=== PATIENT | male | born 1980 | race Caucasian/White ===

== ENCOUNTER 2024-03-29 09:22 | Emergency (ER) | payer OTHER ==
--- OUTSIDE RECORDS SUMMARY | 2024-03-29 09:26 | XMS REPORT | Continuity of Care Document ---
Author Name Unknown Address [address] 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 Role Phone Maxim Stanford Attending Clinician Ingrid Morris Attending Clinician Unavailab Joe Moctezuma Attending Clinician Katarina Davis V Admitting Clinician Unavailable Alexandra Admitting Clinician Unavailab Katarina Hooper Admitting Clinician Unavailable Payers Payer Name Policy Type Policy Number Effective Date Expirati on Date Source [employer] - MILAGROS (PPO) [id number] 2022 00:00:00 Problems Condition Name Condition Details Condition Category Status Onset Date Resolution Date Last Treatment Date Treating Clinician Comments Source Snoring Snoring Problem Active 10-28 00:00: 00 [facility] Adult-onse t obesity Adult-onse t Obesity Problem Active 03-14 00:00: 00 [facility] Cough Cough Problem Active 07-07 00:00: 00 [facility] Wax in ear canal Wax in Ear Canal Problem Active 07-07 00:00: 00 [facility] Otitis Otitis Problem Active 07-07 00:00: 00 [facility] Acute sinusitis Acute Sinusitis Problem Active 07-07 00:00: 00 [facility] Kidney stone Kidney Stone Problem Active 02-27 00:00: 00 [facility] Allergies, Adverse Reactions, Alerts Allergy Name Allergy Type Status Severity Reaction(s) Onset Date Inactive Date Treating Clinician Comments Source adhesive tape DA Active U RASH-UNKNOWN 07-06 00:00: 00 [facility] No Known Allergie s DA Active U 04-21 00:00: 00 [facility] Social History Smoking Status Start Date Stop Date Source Never Smoker [facility] Medications Ordered Medication Name Filled Medication Name Start Date Stop Date Current Medication? Ordering Clinician Indication Dosage Frequency Signature (SIG) Comments Components Source amlodipine 5 mg tablet TAKE 1 TABLET BY MOUTH ONCE DAILY FOR HIGH BLOOD PRESSURE amlodipine 5 mg tablet TAKE 1 TABLET BY MOUTH ONCE DAILY FOR HIGH BLOOD PRESSURE No amlodipine 5 mg tablet TAKE 1 TABLET BY MOUTH ONCE DAILY FOR HIGH BLOOD PRESSURE [facility] aspirin 81 mg tablet,jerome yed release TAKE 1 TABLET BY MOUTH ONCE DAILY FOR MINIMIZE CARDIAC OR STROKE RISK aspirin 81 mg tablet,jerome yed release TAKE 1 TABLET BY MOUTH ONCE DAILY FOR MINIMIZE CARDIAC OR STROKE RISK No aspirin 81 mg tablet,del ayed release TAKE 1 TABLET BY MOUTH ONCE DAILY FOR MINIMIZE CARDIAC OR STROKE RISK [facility] escitalopra m 5 mg tablet Take 1 tablet every day by oral route. escitalopra m 5 mg tablet Take 1 tablet every day by oral route. No 1 Q1D escitalopr am 5 mg tablet Take 1 tablet every day by oral route. [facility] e Immunizations Ordered Immunization Name Filled Immunization Name Date Status Comments Source Pfizer COVID-19 Vaccine Pfizer COVID-19 Vaccine 2020-10-10 00:00:00 Completed Pfizer COVID-19 Vaccine Pfizer COVID-19 Vaccine 2020-09-19 00:00:00 Completed Vital Signs Vital Name Observation Time Observation Value Comments S ource Height 2022-10-28 00:00:00 71 [in_i] [facility] Body Weight 2022-10-28 00:00:00 241 [lb_av] [facility] BP Systolic 2022-10-28 00:00:00 112 mm[Hg] [facility] BMI (Body Mass Index) 2022-10-28 00:00:00 33.6 kg/m2 [facility] BP Diastolic 2022-10-28 00:00:00 80 mm[Hg] [facility] Plan of Care Planned Activity Planned Date Details Comments Source Diagnostic Test Pending 2022-10-28 00:00:00 T4, free, serum [code = T4, free, serum] [facility] Diagnostic Test Pending 2022-10-28 00:00:00 CBC w/ auto diff [code = CBC w/ auto diff] [facility] Instructions [facility] Encounters Start Date/Time End Date/Time Encounter Type Admission Type Attending Clinicians Care Facility Care Department Encounter ID Source 2023-07-07 00:27:00 2023-07-07 02:44:00 Emergency EM Maxim Stanford [facility] [id number] 59 [facility] 2023-02-07 00:00:00 2023-02-07 00:00:00 Outpatient Nguyen_Jessah _HOU_MD VFP VFP [id number] [facility] 2022-10-28 00:00:00 2022-10-28 00:00:00 Outpatient Nguyen_Bich _HOU_MD VFP VFP [id number] [facility] 2022-10-28 00:00:00 2022-10-28 00:00:00 Outpatient Nguyen_Bich _HOU_MD VFP VFP [id number] [facility] 2022-10-28 00:00:00 2022-10-28 00:00:00 Sarah Lundberg MD: [address] [place] [address] , [address], [place] [address] , Ph. VFP [place] - [facility] - [place] - VM_HOU_Beesarah Aurea [id number] [facility] 2022-10-23 07:40:00 2022-10-23 09:51:00 Emergency EM Joe Persaud [facility] [id number] 52 [facility] 2020-10-10 00:00:00 2020-10-10 00:00:00 Outpatient GCCOVIDV GCCOVIDV [id number] [facility] 2020-09-19 00:00:00 2020-09-19 00:00:00 Outpatient GCCOVIDV GCCOVIDV [id number] [facility] Results Test Description Test Time Test Comments Results Result Co mments Source [id number] 02:13:00* Test Item Value Reference Range Interpretation Comme nts MAGNESIUM (test code = MAG) 2.0 mg/dl 1.8-2.4 N TROP-I HIGH [id number] 02:13:00* Test Item Value Reference Range Interpretation Comme nts TROP-I HIGH SENSITIVITY (test code = TROPIHS) 5 ng/L 0-76 N CAUTION: U nits of the current TROPI-HS test methodology(ng/L) differ from the prior test methodology (ng/mL) by afactor of 1000. 99th Percentile: Females: 0 - 51 ng/L Males: 0 - 76 ng/LThese results were obtained using enavu TnIHreagent. Results from different methodologies should not becompared to one another as quantitative results may vary bymethod. CBC W/AUTO [id number] 01:58:00* Test Item Value Reference Range Interpretation Comme nts WHITE BLOOD CELL (test code = WBC) 7.2 K/mm3 4.5-11.0 N RED BLOOD CELL (test code = RBC) 4.93 M/mm3 4.40-5.90 N HEMOGLOBIN (test code = HGB) 14.6 gm/dL 13.0-17.0 N HEMATOCRIT (test code = HCT) 44.5 % 36.0-48.0 N MEAN CELL VOLUME (test code = MCV) 90.3 UM3 80.0-94.0 N MEAN CELL HGB (test code = MCH) 29.6 UUG 25.5-32.5 N MEAN CELL HGB CONCETRATION (test code = MCHC) 32.8 gm/dL 29.0-35.5 N RED CELL DISTRIBUTION WIDTH (test code = RDW) 12.5 % 11.5-15.0 N RED CELL DISTRIBUTION WIDTH SD (test code = RDW-SD) 41.4 fL 34.8-50.2 N PLATELET COUNT (test code = PLT) 188 K/mm3 150-400 N MEAN PLATELET VOLUME (test c ode = MPV) 11.4 fl 7.4-10.4 H NEUTROPHIL % (test code = NT%) 55.7 % 49.0-76.0 N IMMATURE GRANULOCYTE % (test code = IG%) 0.3 % 0.0-0.4 N LYMPHOCYTE % (test code = LY%) 31.5 % 23.0-38.0 N MONOCYTE % (test code = MO%) 10.1 % 1.0-10.0 H EOSINOPHIL % (test code = EO%) 1.8 % 1.0-5.0 N BASOPHIL % (test code = BA%) 0.6 % 0.0-1.0 N NUCLEATED RBC % (test code = NRBC%) 0.0 % 0.0-0.1 N NEUTROPHIL # (test code = NT#) 4.0 K/mm3 2.4-6.3 N IMMATURE GRANULOCYTE # (test code = IG#) 0.02 x10 3/uL 0.00-0.07 N LYMPHOCYTE # (test code = LY#) 2.3 K/mm3 1.2-4.0 N MONOCYTE # (test code = MO#) 0.7 K/mm3 0.0-0.6 H EOSINOPHIL # (test code = EO#) 0.1 K/MM3 0.0-0.7 N BASOPHIL # (test code = BA#) 0.0 K/mm3 0.0-0.2 N NUCLEATED RBC # (test code = NRBC#) 0.00 X10 3uL 0.00-0.01 N - XR CHEST 1 [id number] 01:43:00 [facility] 1980 Sex: M FAX: Maxim Stanford MD [place]: St: REG FAX: Dary Wayne [phone] Name: ADAM TALLEY [facility] : 1980 Age/S: 42/M [address] [facility] Unit #: [id number] Loc: [place], [place]: [place] [address] Acct: [id number] Dis Date: Status: REG ER PHONE #: [phone] Exam Date: 07/07/2023 0125 FAX #: [phone] Reason: Chest Pain EXAMS: CPT CODE: [id number] XR CHEST 1 V 02320 EXAM: - XR CHEST 1 V HISTORY: Chest pain. COMPARISON: October 23, 2022. FINDINGS: Single AP view of the chest is provided. Heart size and vascularity are within normal limits. There isno evidence of a focal consolidation. There is no pleural effusion or pneumothorax. There is no definite acute osseous abnormality. IMPRESSION: No radiographic evidence of acute cardiopulmonary process. at 0143 Reported and signed by: Miller Coppola M.D. CC: Maxim Stanford MD; Dary Wayne NP Technologist: HEDY CORLEY Trntxrd Date/Time/By: 07/07/2023 (0143) : By: [email or web address] PAGE 1 Signed Report FAX: Maxim Stanford MD [place]: St: REG FAX: Dary Wayne [phone] Name: ADAM TALLEY [facility] : 1980 Age/S: 42/M [address] [employer] Unit #: [id number] Loc: [place], [place]: [place] [id number] Acct: [id number] Dis Date: Status: REG ER PHONE #: [phone] Exam Date:07/07/2023 0125 FAX #: [phone] Reason: Chest Pain EXAMS: CPT CODE: [id number] XR CHEST 1 V 41138 (Continued) Orig Print D/T: S: 07/07/2023 (0146) PAGE 2 Signed Report [id number] 09:23:00* Test Item Value Reference Range Interpretation Comme nts MAGNESIUM (test code = MAG) 1.9 mg/dl 1.8-2.4 N THYROID STIMULATING [id number] 09:23:00* Test Item Value Reference Range Interpretation Comme nts THYROID STIMULATING HORMONE (test code = TSH) 6.83 IU/ML 0.47-5.01 H Result is in International Units/milliliter [id number] 09:23:00* Test Item Value Reference Range Interpretation Comme nts CKMB (test code = CKMBT) <0.5 NG/ML 0.5-5.0 L DISREGARD CKMB I NDEX CALCULATION WHENEVER THE CKMBT ISREPORTED <0.5 TROP-I HIGH [id number] 09:23:00* Test Item Value Reference Range Interpretation Comme nts TROP-I HIGH SENSITIVITY (test code = TROPIHS) 6 ng/L 0-76 N CAUTION: U nits of the current TROPI-HS test methodology(ng/L) differ from the prior test methodology (ng/mL) by afactor of 1000. 99th Percentile: Females: 0 - 51 ng/L Males: 0 - 76 ng/LThese results were obtained using Hyperformixt. Results from different methodologies should not becompared to one another as quantitative results may vary bymethod. BASIC METABOLIC [id number] 09:23:00* Test Item Value Reference Range Interpretation Comme nts SODIUM (test code = NA) 137 mmol/l 134.0-147.0 N POTASSIUM (test code = K) 3.7 mmol/L 3.6-5.2 N CHLORIDE (test code = CL) 100 mmol/l 98.0-107.0 N CARBON DIOXIDE (test code = CO2) 32.3 mmol/l 21.0-33.0 N ANION GAP (test code = GAP) 8.4 0-20 N GLUCOSE (test code = GLU) 104 mg/dl 70.0-110.0 N BLOOD UREA NITROGEN (test code = BUN) 10 mg/dl 7.0-18.0 N GLOMERULAR FILTRATION RATE (test code = GFR) 112 mL/min The Glomerular Filtration Rate is a calculated parameterbased on serum Creatinine, patient age and sex. GFR valuesless than 60 mL/min/1.73 square meters are indicative ofChronic Kidney Disease. Values less than 15 mL/min/1.73square meters indicate Kidney failure. The calculation forGFR is based on the CKD-EPI (2020) calculation. This formulais race indifferent and is the recommended formula for GFRby the National Kidney Foundation for Adults.The GFR will not calculate if the sex is unknown or if thepatient's age is <18 years. CREATININE (test code = CREAT) 0.82 mg/dL 0.60-1.30 N CALCIUM (test code = CA) 9.4 mg/dl 8.0-10.5 N ESTIMATED CREAT CLEARANCE (test code = ECRCL) 124 mL/min >30 LIPID PROFILE (CORONARY RISK)2022-10-23 09:23:00* Test Item Value Reference Range Interpretation Comme nts TRIGLYCERIDES (test code = TRIG) 77 mg/dl 40.0-150.0 N CHOLESTEROL (test code = CHOL) 151 mg/dl 0.0-200.0 N CHOLESTEROL/HDL RATIO (test code = CHOLHDL) 3.7 RATIO HDL CHOLESTEROL (test code = HDL) 41 mg/dl 30.0-60.0 N LIPOPROTEIN LDL (test code = LDL) 92 mg/dl 70-130 N HEPATIC FUNCTION PANEL [id number] 09:23:00* Test Item Value Reference Range Interpretation Comme nts TOTAL PROTEIN (test code = PROT) 7.1 gm/dL 6.4-8.2 N ALBUMIN (test code = ALB) 3.8 gm/dl 3.2-4.7 N BILIRUBIN TOTAL (test code = BILT) 0.3 mg/dl 0.0-1.0 N BILIRUBIN DIRECT (test code = BILD) 0.1 mg/dl 0.0-0.3 N SGOT/AST (test code = AST) 21 Units/L 15-37 N SGPT/ALT (test code = ALT) 33 Units/L 12.0-78.0 N ALKALINE PHOSPHATASE TOTAL ( test code = ALKP) 92 Units/L 50.0-136.0 N [id number] 09:23:00* Test Item Value Reference Range Interpretation Comme nts LIPASE (test code = LIP) 46 Units/L 16-77 N B-TYPE NATRIURETIC [id number] 09:19:00* Test Item Value Reference Range Interpretation Comme nts B-TYPE NATRIURETIC PEPTIDE ( test code = BNP) 8.4 PG/ML 5-100 N [id number] 09:07:00* Test Item Value Reference Range Interpretation Comme nts HGBA1C% (test code = HGBA1C%) 5.5 %A1C 4.8-6.0 N ESTIMATED AVERAGE GLUCOSE (t est code = EAG) 111 MG/DL CBC W/AUTO [id number] 08:58:00* Test Item Value Reference Range Interpretation Comme nts WHITE BLOOD CELL (test code = WBC) 9.2 K/mm3 4.5-11.0 N RED BLOOD CELL (test code = RBC) 5.14 M/mm3 4.40-5.90 N HEMOGLOBIN (test code = HGB) 15.3 gm/dL 13.0-17.0 N HEMATOCRIT (test code = HCT) 45.5 % 36.0-48.0 N MEAN CELL VOLUME (test code = MCV) 88.5 UM3 80.0-94.0 N MEAN CELL HGB (test code = MCH) 29.8 UUG 25.5-32.5 N MEAN CELL HGB CONCETRATION (test code = MCHC) 33.6 gm/dL 29.0-35.5 N RED CELL DISTRIBUTION WIDTH (test code = RDW) 12.4 % 11.5-15.0 N RED CELL DISTRIBUTION WIDTH SD (test code = RDW-SD) 40.4 fL 34.8-50.2 N PLATELET COUNT (test code = PLT) 182 K/mm3 150-400 N MEAN PLATELET VOLUME (test c ode = MPV) 11.6 fl 7.4-10.4 H NEUTROPHIL % (test code = NT%) 59.0 % 49.0-76.0 N IMMATURE GRANULOCYTE % (test code = IG%) 0.3 % 0.0-0.4 N LYMPHOCYTE % (test code = LY%) 28.0 % 23.0-38.0 N MONOCYTE % (test code = MO%) 10.5 % 1.0-10.0 H EOSINOPHIL % (test code = EO%) 1.5 % 1.0-5.0 N BASOPHIL % (test code = BA%) 0.7 % 0.0-1.0 N NUCLEATED RBC % (test code = NRBC%) 0.0 % 0.0-0.1 N NEUTROPHIL # (test code = NT#) 5.4 K/mm3 2.4-6.3 N IMMATURE GRANULOCYTE # (test code = IG#) 0.03 x10 3/uL 0.00-0.07 N LYMPHOCYTE # (test code = LY#) 2.6 K/mm3 1.2-4.0 N MONOCYTE # (test code = MO#) 1.0 K/mm3 0.0-0.6 H EOSINOPHIL # (test code = EO#) 0.1 K/MM3 0.0-0.7 N BASOPHIL # (test code = BA#) 0.1 K/mm3 0.0-0.2 N NUCLEATED RBC # (test code = NRBC#) 0.00 X10 3uL 0.00-0.01 N - XR CHEST 1 [id number] 08:30:00 [facility] : 1980 Sex: M FAX: Joe Persaud MD [place]: St: REG FAX: Katarina Quach MD [phone] Name: ADAM TALLEY [facility] : 1980 Age/S: 41/M [address] [facility] Unit #: [id number] Loc: [address] Phys: [place] [id number] Acct: [id number] Dis Date: Status: REG ER PHONE #: [phone] Exam Date: 10/23/2022828 FAX #: [phone] Reason: Chest Pain EXAMS: CPT CODE: [id number] XR CHEST 1 V 60448 HISTORY: chest pain Location code: B2 FINDINGS: Frontal view of the chest demonstrates normal cardiomediastinal silhouette. The trachea is midline. The lungs are clear. There is no effusion or pneumothorax. The bones are intact. IMPRESSION: No acute pulmonary process. at 0830 Reported and signed by: Gordon Quispe M.D. CC: Joe Persaud MD; Katarina Rushing MD Technologist: SCOTTY EDMONDSON Trnscrd Date/Time/By: 10/23/2022 (0830) : By: [email or web address] PAGE 1 Signed Report FAX: Joe Persaud MD [place]: St: REG FAX: Katarina Quach MD [phone] Name: ADAM TALLEY [facility] : 1980 Age/S: 41/M [address] [facility] Unit #: [id number] Loc: [address] Phys: [place] [id number] Acct: [id number] Dis Date: Status: REG ER PHONE #: [phone] Exam Date: 10/23/2022828 FAX #: [phone] Reason: Chest Pain EXAMS: CPT CODE: [id number] XR CHEST 1 V 88983 (Continued) Orig Print D/T: S: 10/23/2022 (0833) PAGE 2 Signed Report
[2024-03-29 10:05] LABS: Absolute Basophils 0.1 K/uL (0-0.5); Absolute Eosinophils 0.1 K/uL (0-0.5); Absolute Lymphocytes (CBC) 1.5 K/uL (0.7-4.9); Absolute Monocytes 0.8 K/uL (0.1-1.3); Absolute Neutrophil 4.9 K/uL (1.8-8.0); Basophils % 0.8 % (0-1.3); Hematocrit 46.4 % (39.6-49.0); Hemoglobin 16.2 g/dL (13.6-17.9); Lymphocytes % 20.2 % (15.3-44.8); MCH 30.3 pg (27.0-35.0); MCHC 34.9 g/dL (32.0-36.0); MCV 86.7 fL (80-100); MPV 9.5 fL (7.6-11.3); Monocytes % 10.8 % (3.3-12.3); Neutrophils % 67.2 % (41.7-73.7); Platelets 190 thou/uL (152-406); RBC Red Blood Cell Count 5.36 M/uL (4.33-5.43); Red Cell Distribution Width 13.3 % (12.1-15.2)
[2024-03-29 10:24] LABS: Anion Gap 8.7 mEq/L (5.0-15.0); Potassium 3.7 mEq/L (3.5-5.1); Troponin High Sensitivity 3.9 pg/mL (<58.9)
--- NOTE | 2024-03-29 10:49 | RAD REPORT ---
EXAM: Chest Single View HISTORY: CHEST PAIN COMPARISON: None. FINDINGS: LUNGS/PLEURA: The lungs are clear. No pleural effusions or pneumothorax. No pulmonary edema. MEDIASTINUM: The mediastinal silhouette is within normal limits. CARDIAC: The cardiac silhouette is within normal limits. UPPER ABDOMEN: No significant abnormality. BONES: No acute abnormality. LINES/TUBES/OTHER: N/A IMPRESSION: No evidence of acute cardiopulmonary disease.
[2024-03-29 11:08] LABS: Specific Gravity < 1.005 (1.005-1.030); Sqamous Epithelial <5 /HPF (None Seen); Urine Bacteria None Seen /HPF (<20); Urine Bilirubin NEGATIVE (Negative); Urine Blood Negative (Negative); Urine Clarity Clear (Clear); Urine Color Colorless (Yellow); Urine Culture Reflex Order NOT NEEDED; Urine Glucose NEGATIVE (Negative); Urine Ketones NEGATIVE (Negative); Urine Micro Reflex YN NO BILL MICROSCOPIC; Urine Nitrite NEGATIVE (Negative); Urine Protein NEGATIVE (Negative); Urine RBC None Seen /HPF (None Seen); Urine Urobilinogen Normal (Normal); Urine WBC <5 /HPF (<5)
--- NOTE | 2024-03-29 11:15 | ER ---
Nurse's Notes [facility] Name: Jong Hernandez Age: 43 yrs Sex: Male : 1980 Arrival Date: 03/29/2024 Time: 09:22 Bed 3 Private MD: Diagnosis: Lightheadedness Presentation: 03/29 09:41 Chief complaint: Patient states: Intermittent shortness of breath, chest tightness, jl7 lightheadedness for 2 months, hx of HTN-noncompliant with unknown HTN med for months. Coronavirus screen: At this time, the client does not indicate any symptoms associated with coronavirus-19. Ebola Screen: No symptoms or risks identified at this time. Initial Sepsis Screen: Does the patient meet any 2 criteria? No. Patient's initial sepsis screen is negative. Does the patient have a suspected source of infection? No. Patient's initial sepsis screen is negative. Risk Assessment: Do you want to hurt yourself or someone else? Patient reports no desire to harm self or others. Onset of symptoms is unknown. 09:41 Method Of Arrival: Ambulatory [facility] 09:41 Acuity: RADHA 2 jl7 Historical: - Allergies: 09:43 No Known Allergies; jl7 - PMHx: 09:43 Hypertensive disorder; jl7 - PSHx: 09:43 None; jl7 - Immunization history:: Adult Immunizations up to date. - Infectious Disease History:: Denies. - Social history:: Smoking status: Patient denies any tobacco usage or history of. Screenin:45 [facility] ED Fall Risk Assessment (Adult) History of falling in the last 3 months, hb including since admission No falls in past 3 months (0 pts) Confusion or Disorientation No (0 pts) Intoxicated or Sedated No (0 pts) Impaired Gait No (0 pts) Mobility Assist Device Used No (0 pt) Altered Elimination No (0 pt) Score/Fall Risk Level 0 - 2 = Low Risk Oriented to surroundings, Maintained a safe environment, Educated pt \T\ family on fall prevention, incl call for assistance when getting out of bed. Abuse screen: Denies threats or abuse. Denies injuries from another. Nutritional screening: No deficits noted. Tuberculosis screening: No symptoms or risk factors identified. Assessment: 09:45 General: Appears in no apparent distress. Behavior is calm, cooperative. Pain: Pain hb currently is 1 out of 10 on a pain scale. at worst was 8 out of 10 on a pain scale. Neuro: Level of Consciousness is awake, alert, obeys commands, Oriented to person, place, time, situation. Cardiovascular: Reports since intermittent chest pain and SOB Patient's skin is warm and dry. Rhythm is regular. Respiratory: Respiratory effort is even, unlabored, Respiratory pattern is regular, symmetrical. GI: No signs and/or symptoms were reported involving the gastrointestinal system. : No signs and/or symptoms were reported regarding the genitourinary system. EENT: No signs and/or symptoms were reported regarding the EENT system. Derm: Skin is pink, warm \T\ dry. Musculoskeletal: No signs and/or symptoms reported regarding the musculoskeletal system. 10:45 Reassessment: Patient appears in no apparent distress at this time. Patient and/or hb family updated on plan of care and expected duration. Pain level reassessed. Patient is alert, oriented x 3, equal unlabored respirations, skin warm/dry/pink. 11:25 Reassessment: Patient appears in no apparent distress at this time. Patient and/or hb family updated on plan of care and expected duration. Pain level reassessed. Patient is alert, oriented x 3, equal unlabored respirations, skin warm/dry/pink. Vital Signs: 09:41 BP 153 / 99; Pulse 84; Resp 17; Temp 97.7; Pulse Ox 97% ; Weight 108.86 kg; Height 5 jl7 ft. 11 in. ; Pain 1/10; 11:00 BP 146 / 86; Pulse 81; Resp 16; Pulse Ox 99% ; hb 09:41 Body Mass Index 33.47 (108.86 kg, 180.34 cm) jl7 09:41 Pain Scale: Adult jl7 ED Course: 09:25 Patient arrived in ED. im 09:26 Ruddy Hart MD is Attending Physician. ec2 09:43 Triage completed. jl7 09:43 Arm band placed on right wrist. jl7 09:45 Patient has correct armband on for positive identification. Placed in gown. Bed in low hb position. Call light in reach. Provided Education on: use of call light, tests, result times . Client placed on continuous cardiac and pulse oximetry monitoring. NIBP monitoring applied. print finishing worker on. Pulse ox on. NIBP on. 09:45 No provider procedures requiring assistance completed. Inserted saline lock: 20 gauge hb in right antecubital area, using aseptic technique. Blood collected. Flushed with 10 mL NS. Patient maintains SpO2 saturation greater than 95% on room air. 09:50 XRAY Chest (1 view) In Process Unspecified. EDMS 09:50 Mary Cazares, RN is Primary Nurse. hb 11:26 IV discontinued, intact, bleeding controlled, No redness/swelling at site. Pressure hb dressing applied. Administered Medications: No medications were administered Medication: :45 VIS not applicable for this client. hb Outcome: 11:15 Discharge ordered by . ec2 11:26 Discharged to home ambulatory, hb 11:26 Condition: stable 11:26 Discharge instructions given to patient, Instructed on discharge instructions, follow up and referral plans. medication usage, Demonstrated understanding of instructions, follow-up care, medications, 11:38 Patient left the ED. hb Signatures: Dispatcher [employer] EDAK Mary Cazares, RN Juan Manuel Post RN RN jl7 Nova Villar Edwin, MD MD ec2
--- NOTE | 2024-03-29 11:15 | EDPHYS ---
Physician Documentation [facility] Name: Jong Hernandez Age: 43 yrs Sex: Male : 1980 Arrival Date: 03/29/2024 Time: 09:22 Bed 3 Private MD: ED Physician Ruddy Hart HPI: 03/29 09:53 This 43 yrs old Male presents to ER via Ambulatory with complaints of Near ec2 Syncope, Chest Tightness, Shortness Of Breath. 09:53 Patient arrives today for evaluation of chest tightness, lightheadedness, shortness of ec2 breath. Occurred while in a meeting. Patient reports no exertional component. Reports he has had similar bouts of this in the past. Reports history of hypertension. No daily medications.. Historical: - Allergies: :43 No Known Allergies; jl7 - PMHx: 09:43 Hypertensive disorder; jl7 - PSHx: 09:43 None; jl7 - Immunization history:: Adult Immunizations up to date. - Infectious Disease History:: Denies. - Social history:: Smoking status: Patient denies any tobacco usage or history of. ROS: 09:53 Constitutional: as per hpi ec2 Exam: 09:53 Constitutional: GEN: NAD Head: atraumatic Eyes: EOMI Ears: External ears are ec2 normal. CV: regular rate LUNGS: no respiratory distress ABD: non-distended SKIN: no evidence of rashes MSK: no evidence of trauma. Psych: Anxious individual who otherwise is cooperative. Vital Signs: 09:41 BP 153 / 99; Pulse 84; Resp 17; Temp 97.7; Pulse Ox 97% ; Weight 108.86 kg; Height 5 jl7 ft. 11 in. ; Pain 1/10; 11:00 BP 146 / 86; Pulse 81; Resp 16; Pulse Ox 99% ; hb 09:41 Body Mass Index 33.47 (108.86 kg, 180.34 cm) jl7 09:41 Pain Scale: Adult jl7 MDM: 09:34 Medical Screening Exam initiated ec2 09:53 Data reviewed: vital signs, nurses notes. ED course: Patient arrives today for ec2 evaluation of chest tightness along with lightheadedness and shortness of breath. Examination is revealing for slightly anxious individual is otherwise in no acute distress. Will obtain lab work, chest x-ray. EKG obtained, independently reviewed and interpreted by me, shows normal sinus rhythm, rate of 79, no acute ST segment elevations, intervals are nonactionable.. 11:14 ED course: On reassessment patient remains well-appearing no acute distress. Low ec2 suspicion for ACS or PE or dissection. Will discharge home with the patient follow-up with PCP. Return precautions given.. 03/29 09:34 Order name: Basic Metabolic Panel; Complete Time: 10:26 ec2 03/29 09:34 Order name: CBC with Diff; Complete Time: 10:26 ec2 03/29 09:34 Order name: NT PRO-BNP; Complete Time: 10:26 ec2 03/29 09:34 Order name: Troponin HS; Complete Time: 10:26 ec2 03/29 10:41 Order name: UAM; Complete Time: 11:14 ec2 03/29 09:34 Order name: XRAY Chest (1 view); Complete Time: 10:52 ec2 03/29 09:34 Order name: Cardiac monitoring; Complete Time: 11:23 ec2 03/29 09:34 Order name: EKG - Nurse/Tech; Complete Time: 09:50 ec2 03/29 09:34 Order name: IV Saline Lock; Complete Time: 11:23 ec2 03/29 09:34 Order name: Labs collected and sent; Complete Time: 11:23 ec2 03/29 09:34 Order name: O2 Per Protocol; Complete Time: 09:50 ec2 03/29 09:34 Order name: O2 Sat Monitoring; Complete Time: 09:50 ec2 Administered Medications: No medications were administered Disposition Summary: 03/29/24 11:15 Discharge Ordered Notes: Location: Home ec2 Condition: Stable ec2 Diagnosis - Lightheadedness ec2 Followup: ec2 - With: Private Physician - When: - Reason: Re-evaluation by your physician Discharge Instructions: - Discharge Summary Sheet ec2 - Dizziness, [id number] ec2 Forms: - Work release form jl7 - Medication Reconciliation Form ec2 - Antibiotic Education ec2 - Prescription Opioid Use ec2 - Patient Portal Instructions ec2 - Leadership Thank You Letter ec2 Signatures: Dispatcher [employer] Mary Lainez RN RN hb Leal, Jahala, RN RN jl7 Ruddy Hart MD MD ec2 Corrections: (The following items were deleted from the chart) 09:35 09:35 Chest Single View+RAD.RAD.BRZ ordered. EDMS EDMS 10:41 10:41 Urinalysis W/Microscopic+U.LAB.BRZ ordered. EDMS EDMS 11:14 09:53 Constitutional: GEN: NAD Head: atraumatic Eyes: EOMI Ears: External ears are ec2 normal. CV: regular rate LUNGS: no respiratory distress ABD: non-distended SKIN: no evidence of rashes MSK: no evidence of trauma ec2
[2024-03-29 11:51] VITALS: TEMP 97.7
[2024-03-29 11:57] VITALS: BP 146/86; O2SAT 99
--- NOTE | 2024-03-29 13:38 | EKG ---
Test Date: 2024-03-29 Test Time: 09:48:59 Field Sampling Technician: DAREN MEASUREMENT RESULTS: Intervals: Rate: 79 AK: 176 QRSD: 102 QT: 358 QTc: 410 [place]: P: 60 AK: 176 QRS: 23 T: 51 INTERPRETIVE STATEMENTS: Normal sinus rhythm Normal ECG No previous ECG available for comparison Electronically Signed On 03-29-24 13:37:15 GREEN CHAIN OFFBEARER by Anival Domínguez
== END 2024-03-29 11:38 | disposition home or self-care (01) ==
LOC: ER 09:22
DX: R42 Dizziness and giddiness (principal); R07.89 Other chest pain; R06.02 Shortness of breath; I10 Essential (primary) hypertension
CPT/HCPCS: 36415; 71045; 80048; 81001; 83880; 84484; 85025; 93005; 99284